=== PATIENT | female | born 1960 | race Caucasian/White ===

== ENCOUNTER → 2016-12-28 | Day surgery (SDC) | payer OTHER ==
[~2016-12-28] VITALS: Ht 154.9 cm; Wt 62.6 kg
[~2016-12-28] MED LIST: ACETAMINOPHEN 1000 MG/100 ML VIAL IV ONE; ACETAMINOPHEN/HYDROcodone 325 MG/5 MG TAB PO PRN; ALPR.5 PO; AMBI5TAB PO; ARTIFICIAL TEARS OPTH OINT 3.5 APPLIC/3.5 GM TUBO ONE; BUPIVACAINE/EPINEPHRINE 0.25% 50 ML VIAL ONE; CHLORHEXIDINE GLUCONATE 4% SOLN 120 ML BTL TOP SCH; CYCL1TAB29 PO; FAMOTIDINE 20 MG/2 ML VIAL ONE; GENTAMICIN SULFATE 80 MG/2 ML VIAL ONE; INSULIN HUMAN REGULAR 1,000 UNITS/10 ML VIAL SQ PRN; LACTATED RINGER'S 1000 ML IV SCH; MELO-1 PO; METOPROLOL TARTRATE 25 MG TAB PO PRN; MIDAZOLAM HCL 2 MG/2 ML VIAL ONE; NEOSTIGMINE 3 MG/3 ML SYR IV ONE; OMEP20TA PO; ONDANSETRON HCL 4 MG/2 ML VIAL IV PUSH ONE; PROP10TA6 PO; PROPOFOL 200 MG/20 ML AMP IV ONE; SODIUM CHLORID 0.9% 500 ML IV SCH; ceFAZolin 1,000 MG/NS 100 ML IV SCH; ceFAZolin INJ 1,000 MG VIAL ONE; fentaNYL CITRATE 250 MCG/5 ML AMP ONE
[2016-12-28 11:01] VITALS: BP 152/85; PULSE 68; RESP 16; TEMP 97.6; O2SAT 98
--- NOTE | 2016-12-28 14:52 | RADRPT ---
EXAM DATE/TIME: 12/28/2016 14:06 [place] COMPARISON: No previous studies available for comparison. INDICATIONS : Level localisation. L5/S1 deb laminectomy. MEDICAL HISTORY : Unobtainable. SURGICAL HISTORY : Unobtainable. ENCOUNTER: Initial ACUITY: 1 day PAIN SCORE: Non-responsive. LOCATION: Lumbar spine FINDINGS: A single lateral view of the lumbar spine was performed. There is a surgical probe corrected towards the L5-S1 disc level.. CONCLUSION: Localization at L5-S1. Luis Lindsey MD on December 28, 2016 at 14:50 Board Certified Radiologist. This report was verified electronically.
[2016-12-28 16:30] VITALS: BP 160/80; PULSE 66; RESP 18; TEMP 97.3; O2SAT 96
--- NOTE | 2016-12-31 06:29 | MP ---
cc: TIM BOBO,OZIEL Zapata M.D. DATE OF SURGERY December 28, 2016 PREOPERATIVE DIAGNOSES 1. L5-S1 herniated nucleus pulposus. 2. Left greater than right lumbar radiculitis. 3. Lumbar spine degenerative disc disease, osteoarthritis. POSTOPERATIVE DIAGNOSES 1. L5-S1 herniated nucleus pulposus. 2. Left greater than right lumbar radiculitis. 3. Lumbar spine degenerative disc disease, osteoarthritis. PROCEDURE L5-S1 bilateral hemilaminectomy, decompression of nerve root, foraminotomy; L5-S1 diskectomy. SURGEON Landen Mahan MD ASSESSMENT Lakisha Garza PA-C ESTIMATED BLOOD LOSS Less than 10 cc. SPECIMEN None. COMPLICATIONS None. ANESTHESIA General. DRAINS None. CONDITION Stable PLAN OF ACTIVITY As per orders. PROCEDURE My ortho assistant Lakisha Garza PA-C, was present for the entire surgical case. She was medically necessary for the entire case because of the complexity of the case and to facilitate the performance of the procedure. The PST MANAGER at the back table was not of the skill set for this case, to manipulate the instruments e.g. the multiple different soft tissue retractors, nerve root retractors. The patient was given satisfactory general endotracheal anesthesia by Dr. Greenberg of the Department of Anesthesia. The patient was carefully transferred onto the [facility] spinal frame. The lumbosacral spine was prepped and draped in the usual sterile manner. Localizing x-ray was used to identify the L5-S1 interspace. A small incision was made over L5-S1. 0.25% Marcaine with epinephrine was used to provide local anesthesia. Small incision was made. Dissection was carried through a considerable amount of adipose tissue down to the tips of the posterior spinous processes. The paraspinal muscle was gently moved posteriorly from the elements bilaterally. A bilateral hemilaminectomy was performed at L5-S1. Left-sided foraminotomy was performed. Removal of the ligamentum flavum was also performed. The nerve root was gently retracted medially. The patient was found to have a mild to moderate degree of herniated nucleus pulposus with an osteophyte disc complex. The 15 blade incised the annulus. Diskectomy was performed. With this the patient was found to have no significant further compression of the nerve root. The wound was irrigated with copious amounts of sterile saline antibiotic solution. The would itself was dry. The wound was closed in routine manner. The fascia was closed with #2 Ticron suture, the subcutaneous layer with 2-0 Vicryl suture and the skin was approximated with running subcuticular 3-0 Vicryl and Dermabond placed over the skin incision. The patient tolerated the procedure well and arrived in the recovery room in stable and satisfactory condition. MD DEJA Sim/RISSA /1:31 PM /5:08 AM
== END | disposition home or self-care (01) ==
LOC: HSDC 10:26
PROVIDERS: ATTEND Orthopaedic Surgery Orthopaedic Surgery of the Spine
DX: M51.17 Intervertebral disc disorders with radiculopathy, lumbosacral region (principal); I10 Essential (primary) hypertension; I34.1 Nonrheumatic mitral (valve) prolapse; F41.9 Anxiety disorder, unspecified; Z87.891 Personal history of nicotine dependence; K21.9 Gastro-esophageal reflux disease without esophagitis
CPT/HCPCS: 00630; 63030; 72020; 76000; J0131; J0690; J1580; J2250; J2405; J2710; J3010